=== PATIENT | male | born 2000 | race Caucasian/White ===

== ENCOUNTER 2018-03-08 23:09 | Emergency (ER) | payer OTHER | END 2018-03-09 00:33 | disposition home or self-care (01) | LOC: ER 23:09 | DX: L03.211 Cellulitis of face (principal) | CPT/HCPCS: 99283 ==

== ENCOUNTER 2019-03-28 18:48 | Emergency (ER) | payer OTHER ==
[~2019-03-28] VITALS: Ht 180.3 cm; Wt 74.8 kg
[~2019-03-28 18:48] MED LIST: SULF1TAB24 PO
[2019-03-28 18:50] VITALS: BP 152/65
--- NOTE | 2019-03-28 19:29 | PHYS DOC ---
Past Medical History Past Medical History: No Pertinent History Past Surgical History: No Surgical History Alcohol Use: None Drug Use: None Adult General Chief Complaint Chief Complaint: SORE THROAT HPI HPI Patient is a 18 year old [f__sex] who presents with [] Review of Systems Review of Systems Constitutional: Denies fever or chills [] Eyes: Denies change in visual acuity, redness, or eye pain [] HENT: Denies nasal congestion or sore throat [] Respiratory: Denies cough or shortness of breath [] Cardiovascular: No additional information not addressed in HPI [] GI: Denies abdominal pain, nausea, vomiting, bloody stools or diarrhea [] : Denies dysuria or hematuria [] Musculoskeletal: Denies back pain or joint pain [] Integument: Denies rash or skin lesions [] Neurologic: Denies headache, focal weakness or sensory changes [] Endocrine: Denies polyuria or polydipsia [] All other systems were reviewed and found to be within normal limits, except as documented in this note. Allergies Allergies Allergies Coded Allergies Type Severity Reaction Last Updated Verified No Known Drug Allergies 03/08/18 No Physical Exam Physical Exam Constitutional: Well developed, well nourished, no acute distress, non-toxic appearance. [] HENT: Normocephalic, atraumatic, bilateral external ears normal, oropharynx moist, no oral exudates, nose normal. [] Eyes: PERRLA, EOMI, conjunctiva normal, no discharge. [] Neck: Normal range of motion, no tenderness, supple, no stridor. [] Cardiovascular:Heart rate regular rhythm, no murmur [] Lungs & Thorax: Bilateral breath sounds clear to auscultation [] Abdomen: Bowel sounds normal, soft, no tenderness, no masses, no pulsatile masses. [] Skin: Warm, dry, no erythema, no rash. [] Back: No tenderness, no CVA tenderness. [] Extremities: No tenderness, no cyanosis, no clubbing, ROM intact, no edema. [] Neurologic: Alert and oriented X 3, normal motor function, normal sensory function, no focal deficits noted. [] Psychologic: Affect normal, judgement normal, mood normal. [] Current Patient Data Vital Signs Vital Signs Date Time Temp Pulse Resp B/P (MAP) Pulse Ox O2 Delivery O2 Flow Rate FiO2 03/28/19 18:50 98.2 80 14 152/65 (94) 98 Room Air 98.2 Lab Values Laboratory Tests Test 03/28/19 19:45 Heterophil Agglutinins Positive (NEGATIVE) EKG EKG [] Radiology/Procedures Radiology/Procedures [] Course & Med Decision Making Course & Med Decision Making Pertinent Labs and Imaging studies reviewed. (See chart for details) [] Dragon Disclaimer Dragon Disclaimer This electronic medical record was generated, in whole or in part, using a voice recognition dictation system. Departure Departure Impression: Primary Impression: Infectious mononucleosis Disposition: HOME, SELF-CARE Condition: STABLE Referrals: NO PCP (PCP) Patient Instructions: Infectious Mononucleosis, [id number] Additional Instructions: Continue use of previously prescribed steroid Problem Qualifiers Primary Impression: Infectious mononucleosis Infectious mononucleosis etiology: unspecified organism Infectious mononucleosis complication: without complication Qualified Codes: B27.90 - Infectious mononucleosis, unspecified without complication ADI MARTINEZ DO Mar 28, 2019 19:29
[2019-03-28 19:59] LABS: MONONUCLEOSIS PATIENT POSITIVE (NEGATIVE)
== END 2019-03-28 20:21 | disposition home or self-care (01) ==
LOC: ER 18:48
DX: B27.80 Other infectious mononucleosis without complication (principal)
CPT/HCPCS: 86308; 87070; 87880; 99284